=== PATIENT | male | born 1955 | race Caucasian/White ===

== ENCOUNTER 2019-12-30 13:26 | Emergency (ER) | payer SELFPAY ==
[~2019-12-30 13:26] MED LIST: EPINEPHrine 1 MG/10 ML Abboject SYRINGE ONE
== END 2019-12-30 13:33 | disposition expired ==
LOC: ERS 13:26
DX: I46.9 Cardiac arrest, cause unspecified (principal); V29.9XXA Motorcycle rider (driver) (passenger) injured in unspecified traffic accident, initial encounter
CPT/HCPCS: 36556; 92950; 96374; G0390; J0171